=== PATIENT | female | born 1970 ===

== ENCOUNTER 2017-01-07 14:07 | Observation (INO) | payer OTHER ==
[2017-01-07 14:18] VITALS: BP 115/75; PULSE 65; RESP 18; TEMP 98.3; O2SAT 99
--- NOTE | 2017-01-07 14:43 | ED PDOC ---
HPI: General Adult Time Seen by Provider: 01/07/17 14:30 Chief Complaint (Nursing): Abdominal Pain Chief Complaint (Provider): Suprapubic Pelvic Pain History Per: Patient, Other (friend) History/Exam Limitations: no limitations Onset/Duration Of Symptoms: Days (ongoing for the past 3 days) Have you had recent travel within the past 21 days to any of the following countries: [place], [place], [place] or [place]?: No Current Symptoms Are (Timing): Still Present Severity: Moderate Location: suprapubic pelvis Quality: "burning" sensation Similar Symptoms Previously: denies Additional Complaint(s): Db Bryson is a 46 year old female, with no pertinent past medical history , who presents to the emergency department for suprapubic pelvic pain, inclusive of a "burning" sensation that has been ongoing for the past 3 days. Denies dysuria, vomiting, diarrhea, or a fever. Of note, no known drug allergies. no vaginal bleeding or discharge PMD: none specified Past Medical History Reviewed: Historical Data, Nursing Documentation, Vital Signs Vital Signs: Last Vital Signs Temp 98.3 F 01/07/17 14:17 Pulse 65 01/07/17 14:17 Resp 18 01/07/17 14:17 BP 115/75 01/07/17 14:17 Pulse Ox 99 01/07/17 16:38 - Medical History PMH: No Chronic Diseases - Surgical History Other surgeries: Thyroidectomy - Family History Family History: States: No Known Family Hx - Social History Current smoker - smoking cessation education provided: No Ex-Smoker (has not smoked in the last 12 months): No Alcohol: None Drugs: Denies - Allergies Allergies/Adverse Reactions: Allergies Allergy/AdvReac Type Severity Reaction Status Date / Time No Known Allergies Allergy Verified 01/07/17 14:18 Review of Systems ROS Statement: Except As Marked, All Systems Reviewed And Found Negative Constitutional: Negative for: Fever Gastrointestinal: Negative for: Vomiting, Diarrhea Genitourinary Female: Positive for: Pelvic Pain. Negative for: Dysuria, Vaginal Discharge, Vaginal Bleeding Musculoskeletal: Positive for: Leg Pain ("burning" sensation down R leg) Physical Exam - Reviewed Nursing Documentation Reviewed: Yes Vital Signs Reviewed: Yes - Physical Exam Appears: Positive for: Well, Non-toxic, No Acute Distress Head Exam: Positive for: ATRAUMATIC, NORMOCEPHALIC Skin: Positive for: Normal Color, Warm, Dry Cardiovascular/Chest: Positive for: Regular Rate, Rhythm. Negative for: Murmur Respiratory: Positive for: Normal Breath Sounds. Negative for: Respiratory Distress Gastrointestinal/Abdominal: Positive for: Normal Exam, Soft. Negative for: Tenderness Pelvic Exam: Positive for: External Exam Normal, Other (R-sided suprapubic tenderness) Back: Positive for: Normal Inspection. Negative for: L CVA Tenderness, R CVA Tenderness Extremity: Positive for: Normal ROM. Negative for: Tenderness Lymphatic: Negative for: Adenopathy Neurologic/Psych: Positive for: Alert, Oriented - Laboratory Results Result Diagrams: 01/07/17 15:25 01/07/17 15:25 - ECG O2 Sat by Pulse Oximetry: 99 (RA) Pulse Ox Interpretation: Normal Medical Decision Making Medical Decision Makin:30 Initial Impression: pelvic pain r/o fibroids and ovarian cyst Initial Plan: * Transvaginal Ultrasound * CBC * CMP * Beta-HCG, Quantitative (x2) * Urinalysis * Urine Culture * Reevaluation 15:40 Urine results came back negative without signs of infection. Scribe Attestation: Documented by El Londono, acting as a scribe for Tobias Thapa MD. Provider Scribe Attestation: All medical record entries made by the Scribe were at my direction and personally dictated by me. I have reviewed the chart and agree that the record accurately reflects my personal performance of the history, physical exam, medical decision making, and the department course for this patient. I have also personally directed, reviewed, and agree with the discharge instructions and disposition. ED OBSERVATION Date of observation admission: 01/07/17 Time of observation admission: 15:15 - Progress Note Progress Note: 01/07/17 16:22 US Pelvis IMPRESSION: Unremarkable pelvic ultrasound 01/07/17 16:23 Urine preg is negative. Hcg is pending 01/07/17 16:37 Hcg reviewed, which is negative. Patient stable for discharge home. Return if symptoms worsen. Follow up with gynecology, information provided for follow up.. 01/08/17 09:25 Disposition - Clinical Impression Clinical Impression: Pelvic pain - Patient ED Disposition Is Patient to be Admitted: No Counseled Patient/Family Regarding: Studies Performed, Diagnosis, Need For Followup - Disposition Disposition: Routine/Home Disposition Time: 15:15 Condition: IMPROVED
[2017-01-07 15:38] LABS: BASO % 0.5 % (0.0-2.0); EOS # 0.3 K/uL (0.0-0.7); EOS % 3.6 % (0.0-4.0); HEMATOCRIT 38.4 % (34.0-47.0); LYMPH # 4.1 K/uL (1.0-4.3); LYMPH % 46.8 % (20.0-40.0); MEAN CELL VOLUME 88.2 fl (81.0-99.0); MEAN CORPUSCULAR HEMOGLOBIN 28.8 pg (27.0-31.0); MEAN CORPUSCULAR HGB CONC 32.7 g/dL (33.0-37.0); MEAN PLATELET VOLUME 10.7 fl (7.2-11.7); MONO # 0.5 K/uL (0.0-0.8); MONO % 5.3 % (0.0-10.0); NEUT # 3.9 K/uL (1.8-7.0); NEUT % 43.8 % (50.0-75.0); NRBC % 0.1 % (0.0-0.0); RED CELL DISTRIBUTION WIDTH 13.5 % (11.5-14.5); WHITE BLOOD COUNT 8.8 K/uL (4.8-10.8)
[2017-01-07 15:46] LABS: RBC URINE < 1 /hpf (0-3); URINE BACTERIA RARE (<OCC); URINE BILIRUBIN NEGATIVE (NEGATIVE); URINE BLOOD NEGATIVE (NEGATIVE); URINE COLOR COLORLESS (YELLOW); URINE GLUCOSE (UA) NEG (Normal); URINE KETONE NEGATIVE (NEGATIVE); URINE LEUKOCYTE ESTERASE NEG Leu/uL (Negative); URINE PROTEIN NEGATIVE (NEGATIVE); URINE UROBILINOGEN 0.2-1.0 mg/dL (0.2-1.0); WBC URINE < 1 /hpf (0-5)
[2017-01-07 16:14] LABS: ALB/GLOB RATIO 1.1 (1.0-2.1); ALKALINE PHOSPHATASE 69 U/L (38-126); ALT/SGPT 23 U/L (9-52); AST/SGOT 30 U/L (14-36); BILIRUBIN,TOTAL 0.3 mg/dl (0.2-1.3); BLOOD UREA NITROGEN 13 mg/dl (7-17); CALCIUM 9.9 mg/dL (8.4-10.2); CARBON DIOXIDE 27 mmol/L (22-30); CHLORIDE 103 mmol/L (98-107); GFR AFRICAN-AMERICAN > 60; GLUCOSE,RANDOM 87 mg/dL (65-105); POTASSIUM 3.9 MMOL/L (3.6-5.0); SODIUM 141 mmol/l (132-148); TOTAL PROTEIN 8.5 G/DL (6.3-8.2)
--- NOTE | 2017-01-07 16:15 | US ---
HISTORY: pelvic pain COMPARISON: Comparison made with pelvic ultrasound 06/13/2014. TECHNIQUE: Transvaginal sonographic evaluation of the pelvis performed. FINDINGS: UTERUS: Uterus is retroverted measuring approximately 5.0 x 2.6 x 3.5 cm. =Normal in size and appearance. No fibroid or other mass lesion seen. ENDOMETRIUM: Endometrial stripe measures approximately 3 mm mm in diameter. Unremarkable. CERVIX: No cervical abnormality identified. RIGHT OVARY: Measures approximately 1.4 x 0.7 x 2.0 cm. No solid mass. Normal flow. LEFT OVARY: Measures approximately 1.7 x 1.1 x 1.8 cm. No solid mass. Normal flow. FREE FLUID: No significant free fluid noted. OTHER FINDINGS: None. IMPRESSION: Unremarkable pelvic ultrasound
== END 2017-01-07 17:05 | disposition home or self-care (01) ==
LOC: H.ER 14:07 → H.EROBSV 15:14
PROVIDERS: ADMIT Emergency Medicine; ATTEND Emergency Medicine
DX: R10.2 Pelvic and perineal pain (principal)

== ENCOUNTER 2018-04-06 09:51 | Emergency (ER) | payer SELFPAY ==
--- NOTE | 2018-04-06 10:42 | ED PDOC ---
HPI: Neurologic - General Time Seen by Provider: 04/06/18 10:18 Chief Complaint (Nursing): Dizziness/Lightheaded Chief Complaint (Provider): Dizziness Source: patient Exam Limitations: no limitations - History of Present Illness Timing/Duration: 4-6 hours Allergies/Adverse Reactions: Allergies No Known Allergies Allergy (Verified 04/06/18 10:02) Home Medications: Ambulatory Orders Meclizine [Meclizine*] 25 mg PO DAILY PRN #30 tab 04/06/18 Additional Complaint(s): 47 year old female presents to the ED for an evaluation of dizziness onset at 6: 30am. Reports the dizziness gets worse when lying down or when looking at the lights. Patient states 8 years ago she went to [facility] for the same symptom and was diagnosed with vertigo. Patient feels like she wants to vomit and reports she had fever 2 days ago. She visited the [facility] and was told she has low platelet. Denies any weakness or numbness. PMD: Clinic Past Medical History Reviewed: Historical Data, Nursing Documentation, Vital Signs Vital Signs: Last Vital Signs Temp 96.4 F L 04/06/18 10:02 Pulse 60 04/06/18 10:02 Resp 20 04/06/18 10:02 BP 117/77 04/06/18 10:02 Pulse Ox 99 04/06/18 10:02 - Medical History PMH: No Chronic Diseases - Family History Family History: States: Unknown Family Hx - Social History Current smoker - smoking cessation education provided: No Alcohol: Social Drugs: Denies - Home Medications Home Medications: Ambulatory Orders Medication Instructions Recorded Meclizine [Meclizine*] 25 mg PO DAILY PRN #30 tab 04/06/18 - Allergies Allergies/Adverse Reactions: Allergies Allergy/AdvReac Type Severity Reaction Status Date / Time No Known Allergies Allergy Verified 04/06/18 10:02 Review of Systems ROS Statement: Except As Marked, All Systems Reviewed And Found Negative Constitutional: Positive for: Fever Neurological: Positive for: Dizziness. Negative for: Weakness, Numbness Physical Exam - Reviewed Nursing Documentation Reviewed: Yes Vital Signs Reviewed: Yes - Physical Exam Appears: Positive for: Non-toxic Head Exam: Positive for: ATRAUMATIC, NORMAL INSPECTION, NORMOCEPHALIC Skin: Positive for: Normal Color, Warm, Dry Eye Exam: Positive for: Normal appearance, EOMI, PERRL. Negative for: Nystagmus Neck: Positive for: Normal Cardiovascular/Chest: Positive for: Regular Rate, Rhythm. Negative for: Murmur Respiratory: Positive for: Normal Breath Sounds. Negative for: Decreased Breath Sounds, Wheezing, Respiratory Distress Gastrointestinal/Abdominal: Positive for: Normal Exam, Bowel Sounds, Soft. Negative for: Tenderness, Guarding, Rebound Back: Positive for: Normal Inspection. Negative for: L CVA Tenderness, R CVA Tenderness Extremity: Positive for: Normal ROM. Negative for: Tenderness, Deformity Neurologic/Psych: Positive for: Alert, Oriented (x3), Other (Rodrigo hallpike unable to perform due to patient's state). Negative for: Motor/Sensory Deficits - Laboratory Results Result Diagrams: 04/06/18 10:40 04/06/18 10:40 - ECG O2 Sat by Pulse Oximetry: 99 (RA) Pulse Ox Interpretation: Normal Medical Decision Making Medical Decision Making: Time: 1042 Initial Impression: Vertigo likely vestibular in origin. No neurologic deficits at this time making stroke or neurologic process less likely. Initial Plan: -- EKG --CMP --CBC w/ Differential --Antivert 25mg --Reevaluation Patient will be treated with Meclizine and IV fluids. If symptoms do not improve , CT head will be ordered. Time: 1220 --Cervical Spine w/o Contrast [CT] --Head w/o Contrast [CT] Time: 1301 PROCEDURE: CT HEAD WITHOUT CONTRAST. HISTORY: dizziness and nausea of acute onset COMPARISON: None available. TECHNIQUE: Axial computed tomography images were obtained through the head/brain without intravenous contrast. Radiation dose: Total exam DLP = 665.16 mGy-cm. This CT exam was performed using one or more of the following dose reduction techniques: Automated exposure control, adjustment of the mA and/or kV according to patient size, and/or use of iterative reconstruction technique. FINDINGS: HEMORRHAGE: No intracranial hemorrhage. BRAIN: Good corticomedullary differentiation is appreciated throughout the brain parenchyma. There is no mass effect identified. There is a small 2-3 mm subcortical lucency identified at the left frontal parietal junction superiorly which is well-circumscribed and likely represents a small area cystic encephalomalacia from an indeterminate etiology. This may be posttraumatic or even reflect a chronic lacune. An elective follow-up brain MRI should be considered as a precaution. Remaining white matter appears within normal limits overall. Bilateral basal ganglia calcifications are identified in the posterior fossa contents appear unremarkable including the brainstem. No suspicious extra-axial collections identified and there is no mass effect. VENTRICLES: Unremarkable. No hydrocephalus. CALVARIUM: Unremarkable. PARANASAL SINUSES: Multifocal bilateral ethmoid and likely maxillary sinus changes are identified. The mastoid sinuses are minimally captured incidentally in this examination. MASTOID AIR CELLS: Unremarkable as visualized. No inflammatory changes. OTHER FINDINGS: None. IMPRESSION: 1. There is a tiny 2-3 mm subcortical lucency identified at left frontoparietal junction nonspecific in appearance but potentially reflecting posttraumatic cystic encephalomalacia or even a chronic lacune. There is no mass-effect or parenchymal edema appreciated throughout the examination with good corticomedullary differentiation preserved. Precautionary follow-up MRI is recommended on elective basis. Please see discussion above. 2. Incidental bilateral ethmoid and likely maxillary sinus disease. Time: 1322 PROCEDURE: CT Cervical Spine without contrast HISTORY: neck pain with headache, dizziness. COMPARISON: None available. TECHNIQUE: Axial computed tomography images were obtained of the cervical spine without the use of intravenous contrast. Coronal and sagittal reformatted images were created and reviewed. Radiation dose: Total exam DLP = 253.32 mGy-cm. This CT exam was performed using one or more of the following dose reduction techniques: Automated exposure control, adjustment of the mA and/or kV according to patient size, and/or use of iterative reconstruction technique. FINDINGS: VERTEBRAE: Vertebral bodies maintained in height. Normal alignment maintained. The atlantoaxial articulation and odontoid process are intact. DISCS/SPINAL CANAL/NEURAL FORAMINA: No significant central canal or neural foraminal stenosis. Discs heights are grossly preserved. PARASPINAL SOFT TISSUES: Unremarkable. OTHER FINDINGS: None. IMPRESSION: No evidence fracture or dislocation. Unremarkable examination. Clinical Impression: Vertigo Upon provider evaluation patient is medically stable, and requires no further treatment in the ED at this time. Patient will be discharged with Meclizine 25mg PO. Counseling was provided and all questions were answered regarding diagnosis and need for follow up with neighborhood clinic. There is agreement to discharge plan. Return if symptoms persist or worsen. Scribe Attestation: Documented by Opal Amezquita, acting as a scribe for Padmini Saunders MD Provider Scribe Attestation: All medical record entries made by the Scribe were at my direction and personally dictated by me. I have reviewed the chart and agree that the record accurately reflects my personal performance of the history, physical exam, medical decision making, and the department course for this patient. I have also personally directed, reviewed, and agree with the discharge instructions and disposition. Disposition - Clinical Impression Clinical Impression: Vertigo - Patient ED Disposition Is Patient to be Admitted: No - Disposition Referrals: [facility] [Outside] Disposition: Routine/Home Disposition Time: 15:27 Condition: IMPROVED Additional Instructions: Do not drive or perform dangerous activities if experiencing vertigo or dizziness. Take the medication when experiencing vertigo. Follow up with primary medical doctor in 1 to 5 days. Return to the emergency department if symptoms worsen or if new symptoms develop. Prescriptions: Meclizine [Meclizine*] 25 mg PO DAILY PRN #30 tab PRN Reason: vertigo Forms: [employer] (Bahraini), [facility] ED School/Work Excuse Print Language: GREENLANDIC
[2018-04-06 11:34] LABS: BASO % 0.4 % (0.0-2.0); EOS # 0.3 K/uL (0.0-0.7); EOS % 3.7 % (0.0-4.0); HEMOGLOBIN 13.3 g/dL (12.0-16.0); LYMPH # 2.4 K/uL (1.0-4.3); LYMPH % 30.8 % (20.0-40.0); MEAN CELL VOLUME 87.9 fl (81.0-99.0); MEAN CORPUSCULAR HEMOGLOBIN 29.4 pg (27.0-31.0); MEAN CORPUSCULAR HGB CONC 33.5 g/dL (33.0-37.0); MEAN PLATELET VOLUME 11.5 fl (7.2-11.7); MONO # 0.4 K/uL (0.0-0.8); MONO % 4.9 % (0.0-10.0); NEUT # 4.6 K/uL (1.8-7.0); NEUT % 60.2 % (50.0-75.0); NRBC % 0.1 % (0.0-0.0); RBC 4.51 Mil/uL (3.80-5.20); RED CELL DISTRIBUTION WIDTH 13.6 % (11.5-14.5); WHITE BLOOD COUNT 7.7 K/uL (4.8-10.8)
[2018-04-06 12:02] LABS: BLOOD UREA NITROGEN 12 mg/dl (7-17); GFR NON-AFRICAN AMERICAN > 60
[2018-04-06 12:03] LABS: CALCIUM 9.5 mg/dL (8.4-10.2)
--- NOTE | 2018-04-06 13:03 | CT ---
Date of service: 04/06/2018 PROCEDURE: CT HEAD WITHOUT CONTRAST. HISTORY: dizziness and nausea of acute onset COMPARISON: None available. TECHNIQUE: Axial computed tomography images were obtained through the head/brain without intravenous contrast. Radiation dose: Total exam DLP = 665.16 mGy-cm. This CT exam was performed using one or more of the following dose reduction techniques: Automated exposure control, adjustment of the mA and/or kV according to patient size, and/or use of iterative reconstruction technique. FINDINGS: HEMORRHAGE: No intracranial hemorrhage. BRAIN: Good corticomedullary differentiation is appreciated throughout the brain parenchyma. There is no mass effect identified. There is a small 2-3 mm subcortical lucency identified at the left frontal parietal junction superiorly which is well-circumscribed and likely represents a small area cystic encephalomalacia from an indeterminate etiology. This may be posttraumatic or even reflect a chronic lacune. An elective follow-up brain MRI should be considered as a precaution. Remaining white matter appears within normal limits overall. Bilateral basal ganglia calcifications are identified in the posterior fossa contents appear unremarkable including the brainstem. No suspicious extra-axial collections identified and there is no mass effect. VENTRICLES: Unremarkable. No hydrocephalus. CALVARIUM: Unremarkable. PARANASAL SINUSES: Multifocal bilateral ethmoid and likely maxillary sinus changes are identified. The mastoid sinuses are minimally captured incidentally in this examination. MASTOID AIR CELLS: Unremarkable as visualized. No inflammatory changes. OTHER FINDINGS: None. IMPRESSION: 1. There is a tiny 2-3 mm subcortical lucency identified at left frontoparietal junction nonspecific in appearance but potentially reflecting posttraumatic cystic encephalomalacia or even a chronic lacune. There is no mass-effect or parenchymal edema appreciated throughout the examination with good corticomedullary differentiation preserved. Precautionary follow-up MRI is recommended on elective basis. Please see discussion above. 2. Incidental bilateral ethmoid and likely maxillary sinus disease.
--- NOTE | 2018-04-06 13:23 | CT ---
Date of service: 04/06/2018 PROCEDURE: CT Cervical Spine without contrast HISTORY: neck pain with headache, dizziness. COMPARISON: None available. TECHNIQUE: Axial computed tomography images were obtained of the cervical spine without the use of intravenous contrast. Coronal and sagittal reformatted images were created and reviewed. Radiation dose: Total exam DLP = 253.32 mGy-cm. This CT exam was performed using one or more of the following dose reduction techniques: Automated exposure control, adjustment of the mA and/or kV according to patient size, and/or use of iterative reconstruction technique. FINDINGS: VERTEBRAE: Vertebral bodies maintained in height. Normal alignment maintained. The atlantoaxial articulation and odontoid process are intact. DISCS/SPINAL CANAL/NEURAL FORAMINA: No significant central canal or neural foraminal stenosis. Discs heights are grossly preserved. PARASPINAL SOFT TISSUES: Unremarkable. OTHER FINDINGS: None. IMPRESSION: No evidence fracture or dislocation. Unremarkable examination.
[2018-04-06 14:38] VITALS: RESP 19
[2018-04-06 16:12] VITALS: BP 110/78; PULSE 78; TEMP 97
--- NOTE | 2018-04-06 18:38 | CARD ---
APPROVED REPORT Date of service: 04/06/2018 EKG Measurement Heart [id number] <Conclusion> Sinus bradycardia Otherwise normal ECG
[2018-04-07 22:53] VITALS: O2SAT 99
== END 2018-04-06 16:13 | disposition home or self-care (01) ==
LOC: H.ER 09:51
DX: R42 Dizziness and giddiness (principal)

== ENCOUNTER 2018-12-14 14:54 | Emergency (ER) | payer SELFPAY ==
[2018-12-14 15:03] VITALS: BP 94/66; RESP 15; TEMP 97.4; O2SAT 99
--- NOTE | 2018-12-14 15:58 | ED PDOC ---
HPI: Chest Pain Time Seen by Provider: 12/14/18 15:39 Chief Complaint (Nursing): Chest Pain Chief Complaint (Provider): Chest pain History Per: Patient History/Exam Limitations: no limitations Onset/Duration Of Symptoms: Days (3) Current Symptoms Are (Timing): Still Present Quality: "Pain" Associated Symptoms: denies: Nausea, Dyspnea, Diaphoresis, Syncope Additional History Per: Patient Additional Complaint(s): 48yo female, otherwise well with no past medical history, comes to ER reporting left sided chest pain x 3 days. She reports she was resting when the pain started, and is radiating to her left neck and left arm. She reports taking Advil at home with no relief. Otherwise, denies any fever, chills, shortness of breath, weakness, numbness. No additional complaints. PMD: [facility] Past Medical History Reviewed: Historical Data, Nursing Documentation, Vital Signs Vital Signs: Last Vital Signs Temp 97.4 F L 12/14/18 15:02 Pulse 71 12/14/18 15:02 Resp 15 12/14/18 15:02 BP 94/66 L 12/14/18 15:02 Pulse Ox 99 12/14/18 15:02 Primary Care Provider: Irwin Fisher - Medical History PMH: No Chronic Diseases - Surgical History Surgical History: No Surg Hx - Family History Family History: States: No Known Family Hx - Living Arrangements Living Arrangements: With Family - Home Medications Home Medications: Ambulatory Orders Medication Instructions Recorded Meclizine [Meclizine*] 25 mg PO DAILY PRN #30 tab 04/06/18 - Allergies Allergies/Adverse Reactions: Allergies Allergy/AdvReac Type Severity Reaction Status Date / Time No Known Allergies Allergy Verified 12/14/18 14:55 Review of Systems ROS Statement: Except As Marked, All Systems Reviewed And Found Negative Constitutional: Negative for: Fever, Chills Cardiovascular: Positive for: Chest Pain Respiratory: Negative for: Cough, Shortness of Breath Gastrointestinal: Negative for: Abdominal Pain Musculoskeletal: Positive for: Neck Pain, Arm Pain Physical Exam - Reviewed Nursing Documentation Reviewed: Yes Vital Signs Reviewed: Yes - Physical Exam Appears: Positive for: Non-toxic, No Acute Distress Head Exam: Positive for: ATRAUMATIC, NORMAL INSPECTION, NORMOCEPHALIC Skin: Positive for: Normal Color Eye Exam: Positive for: Normal appearance Neck: Positive for: Supple Cardiovascular/Chest: Positive for: Regular Rate, Rhythm, Chest Non Tender. Negative for: Murmur, Tachycardia Respiratory: Positive for: Normal Breath Sounds. Negative for: Wheezing Gastrointestinal/Abdominal: Positive for: Normal Exam, Soft Back: Positive for: Normal Inspection Extremity: Positive for: Normal ROM Neurological/Psych: Positive for: Awake, Alert, Normal Tone - Laboratory Results Result Diagrams: 12/14/18 16:04 12/14/18 16:04 - ECG ECG: Positive for: Interpreted By Me, Viewed By Me ECG Rhythm: Positive for: Normal QRS, Normal ST Segment, Sinus Rhythm Rate: 63 O2 Sat by Pulse Oximetry: 99 (RA) Pulse Ox Interpretation: Normal Medical Decision Making Medical Decision Makinyo female with left sided chest pain EKG, cardiac labs, CXR ordered ASA 325mg PO given 1708 Labs reviewed, no clinically significant abnormalities CXR no active disease HEART score of 1 due to age; no risk for significant cardiac event Patient informed of findings and is stable for discharge home. Instructed to follow up with PMD in 1 week. ScribeAttestation: Documented byFatoumata Pinto, acting as a scribe for Padmini Saunders MD. Provider ScribeAttestation: All medical record entries made by the Scribe were at my direction and personally dictated by me. I have reviewed the chart and agree that the record accurately reflects my personal performance of the history, physical exam, medical decision making, and the department course for this patient. I have also personally directed, reviewed, and agree with the discharge instructions and disposition. Disposition - Clinical Impression Clinical Impression: Chest pain - Disposition Disposition: Routine/Home Disposition Time: 17:08 Condition: STABLE Additional Instructions: Follow up with primary medical doctor in within one week. Return to the emergency department if symptoms return. Instructions: Chest Pain (DC), Heart Disease in Women (DC) Forms: [employer] (Romanian), [facility] ED School/Work Excuse Print Language: ARMENIAN
[2018-12-14 16:07] LABS: BASO % 0.5 % (0.0-2.0); EOS # 0.4 K/uL (0.0-0.7); EOS % 5.3 % (0.0-4.0); HEMOGLOBIN 12.4 g/dL (12.0-16.0); LYMPH # 3.6 K/uL (1.0-4.3); LYMPH % 49.3 % (20.0-40.0); MEAN CELL VOLUME 89.7 fl (81.0-99.0); MEAN CORPUSCULAR HEMOGLOBIN 29.1 pg (27.0-31.0); MEAN CORPUSCULAR HGB CONC 32.4 g/dL (33.0-37.0); MEAN PLATELET VOLUME 10.4 fl (7.2-11.7); MONO # 0.4 K/uL (0.0-0.8); MONO % 5.8 % (0.0-10.0); NEUT # 2.9 K/uL (1.8-7.0); NEUT % 39.1 % (50.0-75.0); NRBC % 0.1 % (0.0-0.0); RBC 4.28 Mil/uL (3.80-5.20); RED CELL DISTRIBUTION WIDTH 13.3 % (11.5-14.5); WHITE BLOOD COUNT 7.3 K/uL (4.8-10.8)
[2018-12-14 16:24] LABS: BLOOD UREA NITROGEN 14 mg/dl (7-17); GFR NON-AFRICAN AMERICAN > 60
[2018-12-14 16:25] LABS: CALCIUM 9.2 mg/dL (8.4-10.2)
[2018-12-14 16:27] VITALS: PULSE 63
--- NOTE | 2018-12-14 17:21 | RAD ---
Date of service: 12/14/2018 HISTORY: cough COMPARISON: 01/05/2017. TECHNIQUE: Chest PA and lateral views FINDINGS: LUNGS: No active pulmonary disease. PLEURA: No significant pleural effusion identified. No pneumothorax apparent. CARDIOVASCULAR: No aortic atherosclerotic calcification present. Normal cardiac size. No pulmonary vascular congestion. OSSEOUS STRUCTURES: No significant abnormalities. VISUALIZED UPPER ABDOMEN: Normal. OTHER FINDINGS: None. IMPRESSION: No active disease. No significant interval change compared to the prior examination(s).
--- NOTE | 2018-12-15 10:36 | CARD ---
APPROVED REPORT Date of service: 12/14/2018 EKG Measurement Heart [id number] <Conclusion> Normal sinus rhythm Normal ECG
== END 2018-12-14 17:36 | disposition home or self-care (01) ==
LOC: H.ER 14:54
DX: R07.9 Chest pain, unspecified (principal)